=== PATIENT | male | born 1940 | race Caucasian/White ===

== ENCOUNTER → 2017-08-21 16:04 | Outpatient (CLI) | payer MEDICARE, OTHER, SELFPAY ==
[2017-08-21 17:38] LABS: ALB/GLOB Ratio 0.9 RATIO (0.9-2.4); AST(SGOT) 41 U/L (15-37); Alanine Aminotransfer ALT/SGPT 44 U/L (16-61); Alkaline Phosphatase 76 U/L (45-117); Anion Gap 9 (5-15); BUN 18 mg/dL (7-18); BUN/Creat Ratio 22.1 RATIO (10-20); Bilirubin, Direct 0.15 mg/dL (0.00-0.30); Calcium,Total 8.8 mg/dL (8.5-10.1); Chloride 103 mmol/L (98-107); Cholesterol 102 mg/dL (200); Creatinine, Serum 0.82 mg/dL (0.70-1.30); EST Glomerular Filtration Rate 98 mL/min (>60); Est Glom Filt Rate - Afr Amer 119 mL/min (>60); Globulin 4.4 g/dL (2.2-4.2); Glucose 130 mg/dL (74-106); High Density Lipoprotein 29 mg/dL; Potassium 4.5 mmol/L (3.5-5.1); Protein, Total 8.4 g/dL (6.4-8.2); Sodium Level 140 mmol/L (136-145); Triglycerides 95 mg/dL; Very Low Density Lipoprotein 19 mg/dL (5-40)
[2017-08-21 17:59] LABS: Creatinine, Urine (random) < 13.00 mg/dL (NO RANGE EST.); Microalbumin,Random Urine < 5.0 mg/L (NO RANGE EST.)
== END ==
PROVIDERS: Family Provider Family Medicine; PCP Family Medicine; Visit Provider Family Medicine
DX: E11.9 Type 2 diabetes mellitus without complications (principal); I10 Essential (primary) hypertension
CPT/HCPCS: 36415; 80053; 80061; 82043; 82248; 82570

== ENCOUNTER → 2017-08-24 06:12 | Outpatient (CLI) | payer MEDICARE, OTHER, SELFPAY ==
--- NOTE | 2017-08-24 06:14 | ECHOD_ITS ---
Reason For Study: Dyspnea/SOB Procedure This was a 2D Doppler, Color Flow transthoracic echocardiogram. Exam performed in department. Left Ventricle Normal LV size. Mild concentric left ventricular hypertrophy. Left ventricular systolic function is normal. The estimated ejection fraction is 60 %. Transmitral diastolic flow velocities suggest mild (stage 1) diastolic dysfunction (reversed pattern). No regional wall motion abnormalities noted. Right Ventricle Normal RV size. Normal systolic function. Atria Normal left atrium. Normal right atrium. Mitral Valve Normal mitral valve. Mild (1+) eccentric mitral valve insufficiency. Tricuspid Valve Normal tricuspid valve. Mild tricuspid valve insufficiency. Aortic Valve Trisinus/trileaflet aortic valve. Mild focal aortic valve calcification. Mild (1+) eccentric aortic valve insufficiency. Pulmonic Valve Normal pulmonic valve. Great Vessels Normal aortic root. The pulmonary artery is normal size. Normal inferior vena cava. Pericardium/Pleural No pericardial effusion. MMode/2D Measurements & Calculations LVIDd: 5.5 cm IVSd: 1.2 cm LVOT diam: 2.1 cm LVIDs: 4.0 cm LVPWd: 1.2 cm LVOT area: 3.5 cm2 RVDd: 3.3 cm FS: 27.8 % Ao root diam: 3.8 cm LAV(MOD-bp): 66.8 ml EDV(MOD-sp4): 108.2 ml LAV(MOD-bp) Indexed: 29.0 ml/m2 ESV(MOD-sp4): 37.5 ml LAV(MOD-sp2): 75.4 ml EF(MOD-sp4): 65.4 % LAV(MOD-sp4): 59.4 ml SV(MOD-sp4): 70.8 ml LA A4 area: 20.2 cm2 RA A4 area: 16.8 cm2 Doppler Measurements & Calculations MV E max chucho: 77.2 cm/sec Lat Peak E' Chucho: 7.2 cm/sec Med Peak E' Chucho: 5.1 cm/sec MV A max chucho: 101.0 cm/sec E/E' lat: 10.8 E/E' med: 15.1 MV E/A: 0.76 Ao V2 max: 187.4 cm/sec LV V1 max: 106.2 cm/sec SV(LVOT): 84.6 ml Ao max P.1 mmHg LV V1 max P.5 mmHg Ao V2 mean: 129.2 cm/sec LV V1 mean P.6 mmHg Ao mean P.3 mmHg LV V1 mean: 76.4 cm/sec Ao V2 VTI: 38.3 cm LV V1 VTI: 24.1 cm ESPERANZA(I,D): 2.2 cm2 ESPERANZA(V,D): 2.0 cm2 PA V2 max: 102.9 cm/sec PI end-d chucho: 111.9 cm/sec TR max chucho: 222.7 cm/sec TR max P.8 mmHg Interpretation Summary Normal LV size. Mild concentric left ventricular hypertrophy. Left ventricular systolic function is normal. The estimated ejection fraction is 60 %. Mild (1+) eccentric mitral valve insufficiency. Transmitral diastolic flow velocities suggest mild (stage 1) diastolic dysfunction (reversed pattern). Ordering Physician: Tammy Pathak Referring Physician: Viktor Interiano Performed By: Anita Pang RDCS, RVT
--- NOTE | 2017-08-24 09:07 | STRESSREP ---
Stress Test Report Pharmacologic myocardial perfusion stress test. 76-year-old male with a history of cardiomyopathy. Medications aspirin Lasix carvedilol potassium. Stress protocol: Resting EKG demonstrates sinus rhythm with a rate of 62 bpm right bundle branch block is noted. Resting blood pressure is 170/102 mmHg. 0.4 mg of regadenoson was infused per usual protocol followed by rapid intravenous saline flush injection. Continuous EKG monitoring was performed. Patient maintained sinus rhythm throughout the recording. The maximum heart rate attained was 78 bpm which was 53% maximum predicted heart rate the maximum workload was 1 metabolic equivalent. At rest there were no ST or T-wave changes noted to suggest abnormal flow reserve at peak infusion no ST or T-wave changes were noted suggest abnormal flow reserve. The resting blood pressure is 170/98 mmHg with a peak blood pressure 162/102 mmHg. Myocardial perfusion protocol. 14.6 mCi of technetium 99m sestamibi was injected at rest. 0.4 mg regadenoson was infused per usual protocol. Peak infusion 44.8 mCi of technetium 99m sestamibi was injected stress images were obtained stress and rest images were reconstructed and compared in the short axis vertical long and horizontal long axis. Gated images were also obtained pre- Perfusion SPECT analysis: Review of the images demonstrate normal uptake of tracer noted in all areas of the myocardium. The resting images similarly demonstrate normal uptake of tracer noted in all areas of the myocardium. No areas of reversibility are noted suggest ischemia and no previous infarct is noted. Gated SPECT analysis: The gated ejection fraction is estimated to be 55%. No wall motion abnormalities are present. Conclusion: Normal pharmacologic myocardial perfusion stress test. Preserved ejection fraction.
== END ==
PROVIDERS: Family Provider Family Medicine; PCP Family Medicine; Visit Provider Physician Assistant Medical
DX: R06.09 Other forms of dyspnea (principal); E78.5 Hyperlipidemia, unspecified; I42.9 Cardiomyopathy, unspecified; I11.0 Hypertensive heart disease with heart failure; I50.22 Chronic systolic (congestive) heart failure
CPT/HCPCS: 78452; 93017; 93306; A9500; A4216; J2785

== ENCOUNTER → 2018-03-31 14:54 | Outpatient (CLI) | payer MEDICARE, OTHER, SELFPAY ==
[2017-08-06 13:19] VITALS: BMI 44.4
[2018-03-31 18:05] LABS: AST(SGOT) 45 U/L (15-37); Alanine Aminotransfer ALT/SGPT 43 U/L (16-61); Albumin, Serum 3.9 g/dL (3.2-5.0); Alkaline Phosphatase 79 U/L (45-117); Anion Gap 8 (5-15); BUN 17 mg/dL (7-18); Bilirubin, Direct 0.17 mg/dL (0.00-0.30); Calcium,Total 8.9 mg/dL (8.5-10.1); Chloride 105 mmol/L (98-107); Cholesterol 114 mg/dL (200); Creatinine, Serum 0.74 mg/dL (0.70-1.30); EST Glomerular Filtration Rate 110 mL/min (>60); Est Glom Filt Rate - Afr Amer 133 mL/min (>60); Globulin 3.5 g/dL (2.2-4.2); Glucose 146 mg/dL (74-106); High Density Lipoprotein 35 mg/dL; Potassium 4.5 mmol/L (3.5-5.1); Protein, Total 7.4 g/dL (6.4-8.2); Sodium Level 143 mmol/L (136-145); Triglycerides 135 mg/dL; Very Low Density Lipoprotein 27 mg/dL (5-40)
[2018-03-31 18:40] LABS: Microalbumin,Random Urine 31.1 mg/L (NO RANGE EST.)
--- OUTSIDE RECORDS SUMMARY | 2018-06-02 17:33 | XMS RPT_ITS ---
:1940 Author Organization OHIP Care Team Providers Name Role Phone Viktor Interiano Attending Unavailable Viktor Interiano Primary Care Unavailable Ann Garcia Attending Unavailable Kary Esteban Attending Unavailable Tammy Pathak Attending Unavailable Viktor Interiano Referring Unavailable Viktor Interiano Primary Care Unavailable Viktor Interiano Attending Unavailable Viktor Interiano Primary Care Unavailable Tammy Pathak Attending Unavailable Tammy Pathak Referring Unavailable Viktor Interiano Primary Care Unavailable Manan Eckert Attending Unavailable PROBLEMS PROBLEMS DATE TYPE CONDITION / CODE ATTENDING STATUS SOURCE 03/31/2018 Unknown E11.9 - Type 2 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 [facility] without Hospital complications / Repository E11.9(ICD-10) 08/21/2017 Unknown I10 - Essential Viktor Interiano Active [place] (primary) [facility] hypertension / Hospital I10(ICD-10) Repository 08/06/2017 Unknown I50.22 - Chronic Lawson, Active Linda systolic [facility] (congestive) heart Hospital failure / Repository I50.22(ICD-10) 08/06/2017 Unknown E78.5 - Pathak, Active [facility] Hyperlipidemia, [facility] unspecified / Hospital E78.5(ICD-10) Repository 08/06/2017 Unknown I42.9 - Pathak, Active [place] Cardiomyopathy, [facility] unspecified / Hospital I42.9(ICD-10) Repository 08/06/2017 Unknown R06.09 - Other Pathak, Active Linda forms of dyspnea / [facility] R06.09(ICD-10) Hospital Repository PROCEDURES PROCEDURES No Procedure Records FoundRESULTS RESULTS BASIC METABOLIC Collected: 03/31/2018 Status: F Source: LINDA PROFILE (BMP) 2:58 PM [facility] REPOSITORY TYPE CODE TESTS RESULT OUT OF RANGE REFERENCE UNITS LAB L501.0100 74-106 mg/dL High GLU 146 Result Comment: Fasting Glucose result greater than or equal to 126 mg/dL suggests DIABETES MELLITUS per A.D.A. criteria. Please note revised GLUCOSE reference range effective 2017. LAB L501.1000 7-18 mg/dL Normal BUN 17 LAB L501.1100 0.70-1.30 mg/dL Normal CREAT,SERUM 0.74 Result Comment: The validity of the calculated GFR AND GFRAA in patients over 70 years has not been determined. Clinical correlation is essential. LAB L501.1110 >60 mL/min Normal EST GFR 110 Result Comment: Non- GFR Calc LAB L501.1115 >60 mL/min Normal EST GFR - AA 133 Result Comment: GFR Calc LAB L501.1300 10-20 RATIO High BUN/CRE 23.0 LAB L501.2200 8.5-10.1 mg/dL CA Normal 8.9 LAB L501.5300 136-145 mmol/L NA Normal 143 LAB L501.5600 3.5-5.1 mmol/L K Normal 4.5 LAB L501.5900 98-107 mmol/L CL Normal 105 LAB L501.6100 21.0-32.0 mmol/L Normal CO2 30.0 LAB L501.6200 5-15 Normal GAP 8 Performed By: #### L500.2500, L500.3400, L500.4100 #### [facility] [address], [place], [id number] LIVER PROFILE Collected: 03/31/2018 Status: F Source: BRANSON 2:58 PM [facility] REPOSITORY TYPE CODE TESTS RESULT OUT OF RANGE REFERENCE UNITS LAB L501.1500 6.4-8.2 g/dL Normal T PROT 7.4 LAB L501.1800 3.2-5.0 g/dL Normal ALB 3.9 LAB L501.1950 2.2-4.2 g/dL Normal GLOB 3.5 LAB L501.4100 15-37 U/L High AST 45 LAB L501.4305 45-117 U/L Normal ALK P 79 LAB L501.4405 16-61 U/L Normal ALT 43 LAB L501.4600 0.20-1.00 mg/dL Normal T BILI 0.50 LAB L501.4700 0.00-0.30 mg/dL Normal D BILI 0.17 Performed By: #### L500.2500, L500.3400, L500.4100 #### [facility] [address], [place], [id number] LIPID PROFILE Collected: 03/31/2018 Status: F Source: BRANSON 2:58 PM [facility] REPOSITORY TYPE CODE TESTS RESULT OUT OF RANGE REFERENCE UNITS LAB L501.4900 200 mg/dL Normal CHOL 114 Result Comment: <200 mg/dL Desirable 200-240 mg/dL Borderline >240 mg/dL High Risk LAB L501.5000 mg/dL Normal TRIG 135 Result Comment: The drugs N-Acetylcysteine and Metamizole may falsely depress this assay. Serum Triglycerides Reference Interval Normal <150 mg/dL Borderline high 150 - 199 mg/dL High 200 - 499 mg/dL Very High > or = 500 mg/dL LAB L501.6400 mg/dL Low HDL 35 Result Comment: The drugs N-Acetylcysteine and Metamizole may falsely depress this assay. Reference Range HDL <40 mg/dL Low HDL Cholesterol HDL >or= 60 mg/dL High HDL Cholesterol LAB L501.6500 0-130 mg/dL Normal LDL 52 LAB L501.6600 5-40 mg/dL Normal VLDL 27 Performed By: #### L500.2500, L500.3400, L500.4100 #### [facility] [address] [place], [address] MICROALB:CREAT Collected: 03/31/2018 Status: F Source: BRANSON RATIO,RANDOM UR 2:58 PM [facility] REPOSITORY TYPE CODE TESTS RESULT OUT OF RANGE REFERENCE UNITS LAB L501.1200 NO RANGE EST. mg/dL Normal UR CREAT 259.00 LAB L502.0500 NO RANGE EST. mg/L Normal 31.1 MICROALBUMIN ,UR LAB L502.0600 <30 mg/g CRE mg/g CRE Normal 12.0 MALB:CREAT Performed By: #### L502.0250 #### [facility] [address] [place], [address] ECHOCARDIOGRAM COMPLETE Observed: 08/24/2017 Status: F Source: BRANSON 3:33 PM [facility] REPOSITORY [facility] Cardiovascular Services [address] [place] [address] Echo Complete 08/24/17 0852 MR#: [id number] Acct: [id number] Name: LAWRENCE GILL Rep #: [id number] : 1940 76 From: Manan Eckert MD Attending Dr: Tammy Pathak [facility]: Tammy Pathak Date: 08/24/17 Location: [facility] Sex: M C Admitted: Reason For Study: Dyspnea/SOB Procedure This was a 2D Doppler, Color Flow transthoracic echocardiogram. Exam performed in department. Left Ventricle Normal LV size. Mild concentric left ventricular hypertrophy. Left ventricular systolic function is normal. The estimated ejection fraction is 60 %. Transmitral diastolic flow velocities suggest mild (stage 1) diastolic dysfunction (reversed pattern). No regional wall motion abnormalities noted. Right Ventricle Normal RV size. Normal systolic function. Atria Normal left atrium. Normal right atrium. Mitral Valve Normal mitral valve. Mild (1+) eccentric mitral valve insufficiency. Tricuspid Valve Normal tricuspid valve. Mild tricuspid valve insufficiency. Aortic Valve Trisinus/trileaflet aortic valve. Mild focal aortic valve calcification. Mild (1+) eccentric aortic valve insufficiency. Pulmonic Valve Normal pulmonic valve. Great Vessels Normal aortic root. The pulmonary artery is normal size. Normal inferior vena cava. Pericardium/Pleural No pericardial effusion. MMode/2D Measurements AND Calculations LVIDd: 5.5 cm IVSd: 1.2 cm LVOT diam: 2.1 cm LVIDs: 4.0 cm LVPWd: 1.2 cm LVOT area: 3.5 cm2 RVDd: 3.3 cm FS: 27.8 % Ao root diam: 3.8 cm LAV(MOD-bp): 66.8 ml EDV(MOD-sp4): 108.2 ml LAV(MOD-bp) Indexed: 29.0 ml/m2 ESV(MOD-sp4): 37.5 ml LAV(MOD-sp2): 75.4 ml EF(MOD-sp4): 65.4 % LAV(MOD-sp4): 59.4 ml SV(MOD-sp4): 70.8 ml LA A4 area: 20.2 cm2 RA A4 area: 16.8 cm2 Doppler Measurements AND Calculations MV E max chucho: 77.2 cm/sec Lat Peak E' Chucho: 7.2 cm/sec Med Peak E' Chucho: 5.1 cm/sec MV A max chucho: 101.0 cm/sec E/E' lat: 10.8 E/E' med: 15.1 MV E/A: 0.76 Ao V2 max: 187.4 cm/sec LV V1 max: 106.2 cm/sec SV(LVOT): 84.6 ml Ao max P.1 mmHg LV V1 max P.5 mmHg Ao V2 mean: 129.2 cm/sec LV V1 mean P.6 mmHg Ao mean P.3 mmHg LV V1 mean: 76.4 cm/sec Ao V2 VTI: 38.3 cm LV V1 VTI: 24.1 cm ESPERANZA(I,D): 2.2 cm2 ESPERANZA(V,D): 2.0 cm2 PA V2 max: 102.9 cm/sec PI end-d chucho: 111.9 cm/sec TR max chucho: 222.7 cm/sec TR max P.8 mmHg Interpretation Summary Normal LV size. Mild concentric left ventricular hypertrophy. Left ventricular systolic function is normal. The estimated ejection fraction is 60 %. Mild (1+) eccentric mitral valve insufficiency. Transmitral diastolic flow velocities suggest mild (stage 1) diastolic dysfunction (reversed pattern). Ordering Physician: Tammy Pathak Referring Physician: Viktor Interiano Performed By: Anita Pang, RDCS, RVT 08/24/17 1146 Date Manan Eckert MD CC: Tammy Pathak; Viktor Interiano MD Date Dictated: 08/24/17 0852 Date Transcribed: 08/24/17 114 Health Director: Signed STRESS REPORT Observed: 08/24/2017 Status: F Source: BRANSON 9:10 AM [facility] REPOSITORY [facility] Cardiovascular Services [facility] [place] [address] MR#: [id number] Acct: [id number] Name: LAWRENCE GILL Rep #: [id number] : 1940 76 From: Manan Eckert MD Primary Care: Viktor Interiano MD Status: REG CLI Ordering Dr: Sex: Claribel C Stress Test Report Pharmacologic myocardial perfusion stress test. 76-year-old male with a history of cardiomyopathy. Medications aspirin Lasix carvedilol potassium. Stress protocol: Resting EKG demonstrates sinus rhythm with a rate of 62 bpm right bundle branch block is noted. Resting blood pressure is 170/102 mmHg. 0.4 mg of regadenoson was infused per usual protocol followed by rapid intravenous saline flush injection. Continuous EKG monitoring was performed. Patient maintained sinus rhythm throughout the recording. The maximum heart rate attained was 78 bpm which was 53% maximum predicted heart rate the maximum workload was 1 metabolic equivalent. At rest there were no ST or T-wave changes noted to suggest abnormal flow reserve at peak infusion no ST or T-wave changes were noted suggest abnormal flow reserve. The resting blood pressure is 170/98 mmHg with a peak blood pressure 162/102 mmHg. Myocardial perfusion protocol. 14.6 mCi of technetium 99m sestamibi was injected at rest. 0.4 mg regadenoson was infused per usual protocol. Peak infusion 44.8 mCi of technetium 99m sestamibi was injected stress images were obtained stress and rest images were reconstructed and compared in the short axis vertical long and horizontal long axis. Gated images were also obtained pre- Perfusion SPECT analysis: Review of the images demonstrate normal uptake of tracer noted in all areas of the myocardium. The resting images similarly demonstrate normal uptake of tracer noted in all areas of the myocardium. No areas of reversibility are noted suggest ischemia and no previous infarct is noted. Gated SPECT analysis: The gated ejection fraction is estimated to be 55%. No wall motion abnormalities are present. Conclusion: Normal pharmacologic myocardial perfusion stress test. Preserved ejection fraction. 08/24/17909 <Electronically signed by Manan Eckert MD> Date Manan Eckert MD CC: Tammy Pathak; Viktor Interiano MD Date Dictated: 08/24/17906 Date Transcribed: 08/24/17906 Health Director: [place] Signed COMPREHENSIVE METABOLIC Collected: 08/21/2017 Status: F Source: LINDA FLOR 4:06 PM [facility] REPOSITORY TYPE CODE TESTS RESULT OUT OF RANGE REFERENCE UNITS LAB L501.0100 74-106 mg/dL High GLU 130 Result Comment: Fasting Glucose result greater than or equal to 126 mg/dL suggests DIABETES MELLITUS per A.D.A. criteria. Please note revised GLUCOSE reference range effective 2017. LAB L501.1000 7-18 mg/dL Normal BUN 18 LAB L501.1100 0.70-1.30 mg/dL Normal CREAT,SERUM 0.82 Result Comment: The validity of the calculated GFR AND GFRAA in patients over 70 years has not been determined. Clinical correlation is essential. LAB L501.1110 >60 mL/min Normal EST GFR 98 Result Comment: Non- GFR Calc LAB L501.1115 >60 mL/min Normal EST GFR - AA 119 Result Comment: GFR Calc LAB L501.1300 10-20 RATIO High BUN/CRE 22.1 LAB L501.1500 6.4-8.2 g/dL High T PROT 8.4 LAB L501.1800 3.2-5.0 g/dL Normal ALB 4.0 LAB L501.1950 2.2-4.2 g/dL High GLOB 4.4 LAB L501.2000 0.9-2.4 RATIO Normal A/G 0.9 LAB L501.2200 8.5-10.1 mg/dL CA Normal 8.8 LAB L501.4100 15-37 U/L High AST 41 LAB L501.4305 45-117 U/L Normal ALK P 76 LAB L501.4405 16-61 U/L Normal ALT 44 LAB L501.4600 0.20-1.00 mg/dL T Normal BILI 0.60 LAB L501.5300 136-145 mmol/L NA Normal 140 LAB L501.5600 3.5-5.1 mmol/L K Normal 4.5 LAB L501.5900 98-107 mmol/L CL Normal 103 LAB L501.6100 21.0-32.0 mmol/L Normal CO2 28.0 LAB L501.6200 5-15 Normal GAP 9 Performed By: #### L500.4050, L500.4100, L501.4700 #### [facility] [address] [facility]. [place], [place], [id number] LIPID PROFILE Collected: 08/21/2017 Status: F Source: BRANSON 4:06 PM [facility] REPOSITORY TYPE CODE TESTS RESULT OUT OF RANGE REFERENCE UNITS LAB L501.4900 200 mg/dL Normal CHOL 102 Result Comment: <200 mg/dL Desirable 200-240 mg/dL Borderline >240 mg/dL High Risk LAB L501.5000 mg/dL Normal TRIG 95 Result Comment: The drugs N-Acetylcysteine and Metamizole may falsely depress this assay. Serum Triglycerides Reference Interval Normal <150 mg/dL Borderline high 150 - 199 mg/dL High 200 - 499 mg/dL Very High > or = 500 mg/dL LAB L501.6400 mg/dL Low HDL 29 Result Comment: The drugs N-Acetylcysteine and Metamizole may falsely depress this assay. Reference Range HDL <40 mg/dL Low HDL Cholesterol HDL >or= 60 mg/dL High HDL Cholesterol LAB L501.6500 0-130 mg/dL Normal LDL 54 LAB L501.6600 5-40 mg/dL Normal VLDL 19 Performed By: #### L500.4050, L500.4100, L501.4700 #### [facility] [address] [place], [address] BILIRUBIN, DIRECT Collected: 08/21/2017 Status: F Source: LINDA 4:06 PM [facility] REPOSITORY TYPE CODE TESTS RESULT OUT OF RANGE REFERENCE UNITS LAB L501.4700 0.00-0.30 mg/dL Normal D BILI 0.15 Performed By: #### L500.4050, L500.4100, L501.4700 #### [facility] [address] [place], [address] MICROALB:CREAT Collected: 08/21/2017 Status: F Source: LINDA RATIO,RANDOM UR 4:06 PM [facility] REPOSITORY TYPE CODE TESTS RESULT OUT OF RANGE REFERENCE UNITS LAB L501.1200 NO RANGE EST. mg/dL < Normal UR 13.00 CREAT LAB L502.0500 NO RANGE EST. mg/L < 5.0 Normal MICROALBUMI N,UR LAB L502.0600 <30 mg/g CRE mg/g CRE Test Normal not performed MALB:CREAT Performed By: #### L502.0250 #### [facility] [address] [place], [address] CARDIOLOGY VISIT Observed: 08/19/2017 Status: F Source: LINDA REPORT 8:22 AM [facility] REPOSITORY [facility] [address] [place] [address] OFFICE VISIT Date of Service: 08/06/17 MR#: [id number] Acct: [id number] Name: LAWRENCE GILL Rep #: [id number] : 1940 Provider: Tammy Pathak Age/Sex: 76/M [place] [facility] Status: Signed HPI HPI Details: LAWRENCE GILL, is a 76 M who presents to the office today for a cardiovascular follow-up. He has a history of nonischemic cardiomyopathy, hypertension and diabetes. is concerned that that is more fatigued, has less energy and is more SOB with exertion. sts that is SOB walking to the kitchen. Pt feels that this is related to his 14 lb weight gain over the last year. Pt does not have any chest pain/heaviness/tightness. Pt does not have any palpitations. Pt does occasionally have positional dizziness. Pt has not had any near syncope/syncope. Pt does not have any edema. 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 Required: No Accompanied by: Is patient in pain?: No Allergies lisinopril Allergy (Verified 08/06/17 13:22) Angioedema Medications Aspirin 81 mg PO DAILY 01/01/17 [History Confirmed 08/06/17] Furosemide [Lasix] 40 mg PO DAILY 01/01/17 [History Confirmed 08/06/17] Metformin HCl 500 mg PO DAILY 01/01/17 [History Confirmed 08/06/17] atorvastatin 20 mg tablet 20 mg PO QDAY 08/04/17 [History Confirmed 08/06/17] carvedilol 25 mg tablet 25 mg PO BID 08/04/17 [History Confirmed 08/06/17] potassium chloride ER 20 mEq tablet,extended release(part/cryst) PO 90 Days #90 08/06/17 [History Confirmed 08/06/17] Ejection fraction %: 65 to 70 PFSH Medical History Essential (primary) hypertension (Chronic) HLD (hyperlipidemia) (Chronic) Cardiomyopathy (Chronic) Dyspnea (Acute) Shortness of breath (Acute) Surgical History H/O vasectomy (Resolved) History of tonsillectomy (Resolved) History of knee replacement (Resolved) Family History Father Hypertension Mother Hypertension Social History Smoking Status: Never smoker alcohol intake: never caffeine: Yes Type: coffee Number of servings: 3 what type of physical activity do you participate in: none ROS Const Const: Positive for fatigue; negative for weakness, fever(s) or headache(s) Eyes Eyes: Negative for blind spots, loss of peripheral vision or transient loss of vision ENT ENT: Negative for headache(s), dizziness, tinnitus or Nosebleed/epistaxis Cardio Chest Pain: No Palpitations: No Edema: None Muscle aches with walking: None Resp Respiratory: Positive for SOB with activity; negative for SOB at rest, SOB orthopnea\SOB lying down or Cough GI GI: Negative nausea, vomiting, heartburn or vomiting blood/hematemesis : Negative for hematuria Musc Musc: Negative for muscle aches/ myalgia Neuro Neuro: Negative for weakness, headache(s), dizziness, near syncope, syncope, lightheadedness or orthostatic symptoms Kenneth Hematologic/Lymphatic: Negative for easy bleeding Endo Endo: Positive for fatigue Cardiology Exam Const Appearance: cooperative, no acute distress and well developed Orientation: alert, awake and oriented x3 Head Head: normocephalic and atraumatic Mouth: moist mucous membranes Eyes General: appearance normal, both eyes and all related structures Conjunctivae: conjunctivae normal Pupils: PERRL EOM: EOM intact bilaterally Neck Neck: normal visual inspection, no lymphadenopathy and no JVD Carotids: Negative bruit Neck Mass: Negative Neck mass Chest Chest inspection: normal inspection of the chest and symmetric chest movement Auscultation: Bilateral: Clear to Auscultation Cardio Palpation: normal PMI Rate: regular rate Rhythm: regular rhythm Heart sounds: S1 normal and S2 normal; negative rub, gallop or murmur GI GI: normal to inspection, soft, no hepatosplenomegaly and bowel sounds present; negative tender Neuro General: alert, awake, oriented x3, CN's II-XI intact bilaterally and moves all extremities Extremities Pulses: Normal: Right Posterior Tibial Pulse, Left Posterior Tibial Pulse, Right Radial Pulse, Left Radial Pulse Lower Extremity Edema: None: Bilateral Psych Psychological: normal affect Supplemental Info Echocardiogram done in 2013 demonstrated an ejection fraction of 65% with structurally normal valves. Assessment AND Plan 1. Dilated cardiomyopathy I42.0 Plan - NAVEEN Buckley Patient does have worsening shortness of breath. Would like to obtain an echocardiogram to evaluate LV function. Patient remain on his diuretic and his Coreg. 2. Essential hypertension I10 Plan NAVEEN Rahman Blood pressure is well controlled on current medications, we do not recommend any changes at this time. Orders Orders: 3. Pure hypercholesterolemia E78.00; E78.0 NAVEEN Sandoval Lipids are adequately controlled. Will not make any adjustments. 4. Dyspnea on exertion R06.09 NAVEEN Sandoval With patient's worsening shortness of breath with exertion would like to obtain an echocardiogram to reevaluate LV function. Would also like to obtain a stress test to evaluate for underlying ischemia. 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) Coding Level of Care Code Off vis,est,level 4 Diagnoses Dilated cardiomyopathy I42.0 Cardiomyopathy type: dilated Essential hypertension I10 Pure hypercholesterolemia E78.00; E78.0 Hyperlipidemia type: pure hypercholesterolemia Dyspnea on exertion R06.09 Dyspnea type: dyspnea on exertion Coding Level of Care Code Off vis,est,level 4 Diagnoses Dilated cardiomyopathy I42.0 Cardiomyopathy type: dilated Essential hypertension I10 Pure hypercholesterolemia E78.00; E78.0 Hyperlipidemia type: pure hypercholesterolemia Dyspnea on exertion R06.09 Dyspnea type: dyspnea on exertion 06 1326 <Electronically signed by Tammy Pathak PA> Date Tammy HODGE 08/19/17 0822<Electronically signed by Manan Eckert MD> Cosigner Signature: Date (if applicable) Manan Eckert MD CC: Viktor Interiano MD ALLERGIES ALLERGIES DATE TYPE / CODE NAME / CODE REACTION SEVERITY SOURCE 08/06/2017 Drug lisinopril/F Angioedema Unknown [facility] Allergy/4160 [id number]([facility] [address](SNOMED NORM) Repository CT) ENCOUNTERS ENCOUNTERS ADMIT/DISCHARGE ACCOUNT ADMITTING ENCOUNTER LOCATION SOURCE NUMBER CLASS 03/31/2018 [id number] Ambulatory [facility] ing:[facility] Repository 08/24/2017 [id number] Ambulatory [place] Linda 4 [facility] ing:[facility] Repository 08/24/2017 [id number] Ambulatory BMSBuilding:W Linda 2 [facility] Repository 08/21/2017 [id number] Ambulatory [facility] 4 [facility] ing:[facility] Repository 08/06/2017/ [id number] Ambulatory BMSBuilding:B [facility] 8 0 [facility] Repository 08/04/2017 [id number] Ambulatory BMS [address] Repository 07/17/2017 [id number] Ambulatory BMSBuilding:B [facility] 8 [facility] Repository PAYERS PAYERS ENCOUNTER GUARANTOR PAYER SUBSCRIBER SOURCE 03/31/2018 LAWRENCE [place] Primary LAWRENCE [id number] [address] Insurance:MEDICARE [place]: [facility] [place] [facility] [id number] Hospital [address]Yow: (330) Number: Repository [phone] () [id number] Date:2018-03-31 03/31/2018 Secondary LAWRENCE San[place] Linda Insurance:MED MUT WARDENDOB: [facility] [id number] Hospital Number: Repository [id number] Date:[id number] [address]UN: 03/31/2018 Tertiary NOT GIVENUNK Linda Insurance:SELF PAY [facility] Number: Effective Repository Date:2018-03-31 08/24/2017 LAWRENCE Sanford Primary LAWRENCE Mckeon [id number] FAMILIA Insurance:MEDICARE WARDENDOB: [facility] [place] [facility] [id number] Hospital [address]Ixt: Number: Repository [phone] [id number] () Date:2017-08-07 08/24/2017 Secondary LAWRENCE Mckeon Insurance:MUTUAL OF WARDENDOB: [facility] Number: [id number] Hospital [id number] Repository Date:[id number] [place], [place] [address]SV: 08/24/2017 Tertiary NOT GIVENUNK Linda Insurance:SELF PAY [facility] Number: Effective Repository Date:2017-08-07 08/24/2017 LAWRENCE Sanford Primary LAWRENCE Mckeon [id number] FAM[place] Insurance:MEDICARE WARDENDOB: [facility] [place] [facility] [id number] Hospital [address]Mig: (330) Number: Repository [phone] () [id number] Date:2017-08-07 08/24/2017 Secondary LAWRENCE [facility]ford [facility] Insurance:MUTUAL OF WARDENDOB: [facility] Number: [id number] Hospital [id number] Repository Date:[id number] [place], [place] [address]NN: 08/24/2017 Tertiary NOT GIVENUNK [facility] Insurance:SELF PAY [facility] Number: Effective Repository Date:2017-08-24 08/21/2017 LAWRENCE Sanford Primary LAWRENCE Mckeon [id number] FAM[place] Insurance:MEDICARE [place]: [place] olic [id number] Hospital [address]Lau: Number: Repository [phone] [id number] () Date:2017-08-21 08/21/2017 Secondary LAWRENCE Sanford Linda Insurance:MUTUAL OF WARDENDOB: [facility] Number: [id number] Hospital [id number] Repository Date:[id number] [place], [place] [address]YT: 08/21/2017 Tertiary NOT GIVENUNK Linda Insurance:SELF PAY [facility] Number: Effective Repository Date:2017-08-21 08/06/2017 LAWRENCE Sanford Primary LAWRENCE Mckeon [id number] FAM[place] Insurance:MEDICARE [place]: [place] [facility] [id number] Hospital [address]Qmr: Number: Repository [phone] [id number] () Date:2017-02-18 08/06/2017 Secondary LAWRENCE Sanford [facility] Insurance:MUTUAL OF WARDENDOB: [facility] Number: [id number] Hospital [id number] Repository Date:[id number] [place], [place] [address]OL: 08/06/2017 Tertiary NOT GIVENUNK Linda Insurance:SELF PAY [facility] Number: Effective Repository Date:2017-02-18 08/04/2017 Lawrence Sanford Primary Lawrence Mckeon [id number] Familia Insurance:MEDICARE [place] [facility] [id number] [id number]: [phone]) Number: Repository [phone] () [id number] Date:2017-08-04 08/04/2017 Secondary Lawrence Sanford [place] Insurance:MUTUAL OF WardenDOB: [facility] Number: [id number] Hospital [id number] Repository Date:[id number] [place], [place] [address]WZ: 08/04/2017 Tertiary NOT GIVENUNK [place] Insurance:SELF PAY [facility] Number: Effective Repository Date:2017-08-04 07/17/2017 Lawrence M Primary Lawrence M Linda [id number] Familia Insurance:MEDICARE WardenDOB: [facility] PART A [facility] [id number] Hospital [id number]: [phone]) Number: Repository [phone] () [id number] Date:2017-07-17 07/17/2017 Secondary Lawrence M [place] Insurance:MUTUAL OF WardenDOB: [facility] Number: [id number] Hospital [id number] Repository Date:[id number] [place], [place] [address]JI: 07/17/2017 Tertiary NOT GIVENUNK [place] Insurance:SELF PAY [facility] Number: Effective Repository Date:2017-07-17
== END ==
PROVIDERS: Family Provider Family Medicine; PCP Family Medicine; Visit Provider Family Medicine
DX: E11.9 Type 2 diabetes mellitus without complications (principal)
CPT/HCPCS: 36415; 80048; 80061; 80076; 82043; 82570

== ENCOUNTER → 2018-06-30 | Outpatient (CLI) | payer MEDICARE, OTHER, SELFPAY ==
[2017-08-06 13:19] VITALS: BMI 44.4
[2018-06-30 17:59] LABS: Hemoglobin A1c 8.1 % (4.2-6.3)
[2018-06-30 18:15] LABS: Anion Gap 9 (5-15); BUN 15 mg/dL (7-18); BUN/Creat Ratio 18.5 RATIO (10-20); Calcium,Total 9.1 mg/dL (8.5-10.1); Chloride 102 mmol/L (98-107); Cholesterol 125 mg/dL (200); Creatinine, Serum 0.81 mg/dL (0.70-1.30); EST Glomerular Filtration Rate 98 mL/min (>60); Est Glom Filt Rate - Afr Amer 119 mL/min (>60); Glucose 138 mg/dL (74-106); High Density Lipoprotein 33 mg/dL; PSA,Total - Annual Screen 0.97 ng/mL (0.00-4.00); Potassium 4.5 mmol/L (3.5-5.1); Sodium Level 142 mmol/L (136-145); Triglycerides 140 mg/dL; Very Low Density Lipoprotein 28 mg/dL (5-40)
[2018-06-30 18:21] LABS: Vitamin D,25 Hydroxy 17.9 ng/mL (29.95-100.01)
== END | disposition home or self-care (01) ==
LOC: MFPLAB 15:05
PROVIDERS: Family Provider Family Medicine; PCP Family Medicine; Referring Provider Family Medicine; Visit Provider Family Medicine
DX: Z00.00 Encounter for general adult medical examination without abnormal findings (principal); E55.9 Vitamin D deficiency, unspecified; E11.9 Type 2 diabetes mellitus without complications; Z12.5 Encounter for screening for malignant neoplasm of prostate
CPT/HCPCS: 36415; 80048; 80061; 82306; 83036; 84153; G0103

== ENCOUNTER 2018-11-26 18:53 | Emergency (ER) | payer MEDICARE, OTHER, SELFPAY ==
[2018-08-24 13:02] VITALS: BMI 43.5
[2018-11-26 18:54] VITALS: BP 147/70; PULSE 74; RESP 18; TEMP 36.6; O2SAT 92; BMI 44.4
--- NOTE | 2018-11-26 19:25 | RAD_ITS ---
STUDY: X-RAY - UNILATERAL RIBS ( RIGHT ) WITH CHEST REASON FOR EXAM: Male, 78 years old. Fall, right rib pain. TECHNIQUE - RIBS: 4 view(s) of the ribs. TECHNIQUE - CHEST: Single frontal view of the chest. COMPARISON: None. FINDINGS - RIBS: There are mild to moderately displaced fractures of the lateral left eighth and ninth ribs, as well as nondisplaced fracture of the lateral right 10th rib. FINDINGS - CHEST: Mild elevation of the right diaphragm and/or prominent epicardial fat pad at the right cardiophrenic angle. The lungs are otherwise clear and expanded. There is no demonstrated pleural abnormality. Normal size heart. Normal mediastinum and maury. Normal visualized pulmonary arteries. There is mild atherosclerotic calcification of the aortic arch. There are degenerative changes of the lower thoracic and visualized lumbar spine. Normal visualized left ribs, clavicles, and shoulders. There is no demonstrated abnormality of the visualized soft tissue structures of the upper abdomen. RAD/Ribs Uni Min 3V w/PA Chest IMPRESSION: RIBS: Fractures of the lateral right 8-10 ribs. CHEST: No acute cardiopulmonary disease. No right pneumothorax. Electronically Signed: Wilman Christianson MD at 19:47 EDT , Service support ,
--- NOTE | 2018-11-26 20:07 | ED.DCSUM_ITS ---
History of Present Illness Chief Complaint: Fall Narrative: Patient presenting for evaluation secondary to a fall with rib injury. Patient reports that he was fixing his deck, and he has an area with open joists that he fell directly onto the joist striking his right chest. Patient states that he now has a continuous sharp pain in that area worse with movement and deep breathing. Patient denies any shortness of breath. Denies any hemoptysis. Denies any hematuria associated with this. He is not anticoagulated. He denies any other injuries at this time. Past Medical History - Allergies and Home Meds Allergies/Adverse Reactions: Allergies lisinopril Allergy (Verified 11/26/18 18:57) Angioedema Primary Care Physician: Viktor Interiano MD [Primary Care Provider] - Past Medical History: - - CHF hypertension hyperlipidemia Smoking Status: Never smoker Review of Systems All systems negative except as indicated Cardiovascular: Reports: Chest pain Physical Exam Vital Signs/Narrative: Vital Signs Temp Pulse Resp BP Pulse Ox 11/26/18 18:54 97.9 F 74 18 147/70 H 92 Inital Vital Signs reviewed: Yes General: Well nourished, Well developed, - - Airway patent breath sounds equal bilateral central peripheral pulses 2+ and symmetric GCS 15 out of 15 Head: Normocephalic, Atraumatic Eyes: Perrl, EOMI Neck: Nontender, Full ROM Cardiovascular: Regular rate, Regular rhythm, No murmurs Respiratory: No distress, - - Right-sided rib tenderness over the lateral and anterior ribs at approximately the T8 area without any evidence of underlying crepitus or flail chest Abdomen: Soft, Nontender, Nondistended, Normal bowel sounds Back: Nontender Skin: Normal color, No rash Neurological: Alert, Oriented x3, Cranial nerves II-XII grossly intact, Normal Strength, Normal Sensation Psychological: Normal affect Diagnostic/Tx/Re-eval Chest X-Ray - ED: - - Right-sided rib series by my personal review as well as r adiology demonstrates evidence of rib fractures of T8-10 without evidence of associated pneumothorax - Medical Decision Making Patient presented secondary to a mechanical fall. Primary and secondary surveys showed evidence of right-sided rib pain no other injuries. Rib x-rays were found to show evidence of rib fractures. Patient had a pulse ox around 9394%, but is sitting very comfortably and is not dyspneic. He is not on any sort of anticoagulants and there is no evidence of underlying pulmonary contusion. I did discussion with patient about inpatient versus outpatient treatment for his rib fractures, he does wish to go home which I believe at this point is appropriate although I gave the patient strict return instructions which he voiced understanding of his and his own words. Patient will be discharged with an incentive spirometer lidocaine patches as well as a course of [place]. Disposition: Home ED Disposition - Plan for ED Patient: Disposition: Home or Assisted Living Diagnosis: Right rib fracture Instructions: Rib Fracture (Broken Rib) Prescriptions: Lidocaine [Lidoderm] 1 each TP DAILY #10 adh..patch Hydrocodone Bitart/Apap 5-325 [[place] 5MG-325MG] 1 tablet PO Q6H PRN PRN 3 Days #12 tablet PRN Reason: Pain Referrals: Viktor Interiano MD [Primary Care Provider] - 3-5 Days
[2018-11-26] MEDS: Lidocaine 5% Patch 1 PATCH TOPICAL (20:11)
== END 2018-11-26 20:21 | disposition home or self-care (01) ==
PROVIDERS: Emergency Provider Emergency Medicine; Family Provider Family Medicine; PCP Family Medicine
DX: S22.41XA Multiple fractures of ribs, right side, initial encounter for closed fracture (principal); W19.XXXA Unspecified fall, initial encounter; Y93.9 Activity, unspecified; Y92.9 Unspecified place or not applicable; I11.0 Hypertensive heart disease with heart failure; I50.9 Heart failure, unspecified; E78.5 Hyperlipidemia, unspecified; Z79.82 Long term (current) use of aspirin; Z79.899 Other long term (current) drug therapy
CPT/HCPCS: 71101; 99282

== ENCOUNTER → 2019-01-27 15:54 | Outpatient (CLI) | payer MEDICARE, OTHER, SELFPAY ==
[2019-01-27 17:46] LABS: Anion Gap 6 (5-15); BUN 14 mg/dL (7-18); BUN/Creat Ratio 22.2 RATIO (10-20); Calcium,Total 8.9 mg/dL (8.5-10.1); Chloride 105 mmol/L (98-107); Cholesterol 117 mg/dL (200); Creatinine, Serum 0.63 mg/dL (0.70-1.30); EST Glomerular Filtration Rate 131 mL/min (>60); Est Glom Filt Rate - Afr Amer 159 mL/min (>60); Glucose 133 mg/dL (74-106); High Density Lipoprotein 34 mg/dL; Potassium 4.3 mmol/L (3.5-5.1); Sodium Level 139 mmol/L (136-145); Triglycerides 118 mg/dL; Very Low Density Lipoprotein 24 mg/dL (5-40)
== END ==
PROVIDERS: Family Provider Family Medicine; PCP Family Medicine; Referring Provider Family Medicine; Visit Provider Family Medicine
DX: E11.9 Type 2 diabetes mellitus without complications (principal)
CPT/HCPCS: 36415; 80048; 80061

== ENCOUNTER → 2019-09-19 11:26 | Outpatient (CLI) | payer MEDICARE, OTHER, SELFPAY ==
[2019-02-23 10:08] VITALS: BMI 45.5
[2019-09-19 15:24] LABS: Anion Gap 5 (5-15); BUN 19 mg/dL (7-18); BUN/Creat Ratio 28.1 RATIO (10-20); Calcium,Total 8.8 mg/dL (8.5-10.1); Chloride 106 mmol/L (98-107); Creatinine, Serum 0.68 mg/dL (0.70-1.30); EST Glomerular Filtration Rate 121 mL/min (>60); Est Glom Filt Rate - Afr Amer 146 mL/min (>60); Glucose 160 mg/dL (74-106); Potassium 4.4 mmol/L (3.5-5.1); Sodium Level 139 mmol/L (136-145)
== END ==
PROVIDERS: PCP Family Medicine; Referring Provider Family Medicine; Visit Provider Family Medicine
DX: I10 Essential (primary) hypertension (principal)
CPT/HCPCS: 36415; 80048

== ENCOUNTER → 2019-12-19 11:19 | Outpatient (CLI) | payer MEDICARE, OTHER, SELFPAY ==
[2019-11-22 12:39] VITALS: BMI 44.5
[2019-12-19 13:36] LABS: ALB/GLOB Ratio 0.8 RATIO (0.9-2.4); AST(SGOT) 41 U/L (15-37); Alanine Aminotransfer ALT/SGPT 37 U/L (16-61); Albumin, Serum 3.7 g/dL (3.2-5.0); Alkaline Phosphatase 79 U/L (45-117); Anion Gap 4 (5-15); BUN 17 mg/dL (7-18); BUN/Creat Ratio 24.2 RATIO (10-20); Calcium,Total 8.9 mg/dL (8.5-10.1); Chloride 105 mmol/L (98-107); Cholesterol 122 mg/dL (200); EST Glomerular Filtration Rate 116 mL/min (>60); Est Glom Filt Rate - Afr Amer 140 mL/min (>60); Globulin 4.4 g/dL (2.2-4.2); Glucose 154 mg/dL (74-106); High Density Lipoprotein 34 mg/dL; Potassium 4.2 mmol/L (3.5-5.1); Protein, Total 8.1 g/dL (6.4-8.2); Sodium Level 138 mmol/L (136-145); Triglycerides 108 mg/dL; Very Low Density Lipoprotein 22 mg/dL (5-40)
[2019-12-19 13:46] LABS: Microalbumin,Random Urine 31.3 mg/L (NO RANGE EST.); Microalbumin:Creatinine Ratio 30.4 mg/g CRE (<30 mg/g CRE)
== END ==
PROVIDERS: PCP Family Medicine; Visit Provider Family Medicine
DX: E11.9 Type 2 diabetes mellitus without complications (principal)
CPT/HCPCS: 36415; 80053; 80061; 82043; 82570

== ENCOUNTER → 2020-06-18 13:52 | Outpatient (CLI) | payer MEDICARE, OTHER, SELFPAY ==
[2019-11-22 12:39] VITALS: BMI 44.5
[2020-06-18 15:49] LABS: Anion Gap 5 (5-15); BUN 12 mg/dL (7-18); BUN/Creat Ratio 16.2 RATIO (10-20); Calcium,Total 9.3 mg/dL (8.5-10.1); Chloride 101 mmol/L (98-107); Cholesterol 133 mg/dL (200); Creatinine, Serum 0.74 mg/dL (0.70-1.30); EST Glomerular Filtration Rate 109 mL/min (>60); Est Glom Filt Rate - Afr Amer 132 mL/min (>60); Glucose 143 mg/dL (74-106); High Density Lipoprotein 35 mg/dL; Potassium 4.3 mmol/L (3.5-5.1); Sodium Level 136 mmol/L (136-145); Triglycerides 118 mg/dL; Very Low Density Lipoprotein 24 mg/dL (5-40)
[2020-06-18 15:51] LABS: Microalbumin,Random Urine 16.3 mg/L (NO RANGE EST.); Microalbumin:Creatinine Ratio 20.4 mg/g CRE (<30 mg/g CRE)
== END ==
PROVIDERS: PCP Family Medicine; Visit Provider Family Medicine
DX: E11.9 Type 2 diabetes mellitus without complications (principal)
CPT/HCPCS: 36415; 80048; 80061; 82043; 82570

== ENCOUNTER → 2021-08-19 | Outpatient (CLI) | payer MEDICARE, SELFPAY ==
[2021-08-19 18:02] LABS: Microalbumin:Creatinine Ratio 15.5 mg/g CRE (<30 mg/g CRE)
[2021-08-19 18:05] LABS: Anion Gap 5 (5-15); BUN 12 mg/dL (7-18); Calcium,Total 9.2 mg/dL (8.5-10.1); Chloride 102 mmol/L (98-107); Cholesterol 122 mg/dL (200); Creatinine, Serum 0.75 mg/dL (0.70-1.30); EST Glomerular Filtration Rate 107 mL/min (>60); Est Glom Filt Rate - Afr Amer 129 mL/min (>60); Glucose 125 mg/dL (74-106); High Density Lipoprotein 31 mg/dL; Potassium 4.9 mmol/L (3.5-5.1); Sodium Level 136 mmol/L (136-145); Triglycerides 128 mg/dL; Very Low Density Lipoprotein 26 mg/dL (5-40)
== END | disposition home or self-care (01) ==
LOC: MFPLAB 16:32
PROVIDERS: PCP Family Medicine; Visit Provider Family Medicine
DX: E11.9 Type 2 diabetes mellitus without complications (principal)
CPT/HCPCS: 36415; 80048; 80061; 82043; 82570

== ENCOUNTER → 2022-02-17 | Outpatient (CLI) | payer MEDICARE, SELFPAY ==
[2022-02-17 18:26] LABS: Anion Gap 6 (5-15); BUN 13 mg/dL (7-18); Chloride 103 mmol/L (98-107); Cholesterol 112 mg/dL (200); Creatinine, Serum 0.62 mg/dL (0.70-1.30); EST Glomerular Filtration Rate 133 mL/min (>60); Est Glom Filt Rate - Afr Amer 161 mL/min (>60); Glucose 115 mg/dL (74-106); High Density Lipoprotein 34 mg/dL; Potassium 4.6 mmol/L (3.5-5.1); Sodium Level 138 mmol/L (136-145); Triglycerides 106 mg/dL; Very Low Density Lipoprotein 21 mg/dL (5-40)
== END | disposition home or self-care (01) ==
LOC: MFPLAB 14:43
PROVIDERS: PCP Family Medicine; Visit Provider Family Medicine
DX: I10 Essential (primary) hypertension (principal)
CPT/HCPCS: 36415; 80048; 80061

== ENCOUNTER 2022-07-25 20:43 | Emergency (ER) | payer MEDICARE, SELFPAY ==
[2022-07-25 20:44] VITALS: BP 134/116; PULSE 78; RESP 18; TEMP 35.6; O2SAT 93
[2022-07-25 20:46] VITALS: BMI 44.0
--- NOTE | 2022-07-25 21:04 | EX.ED.GENINJ ---
HPI History of Present Illness Chief Complaint: Fall Informant: patient Onset/Context/Timing Onset: Today Narrative Narrative: Patient presents with left rib injury. He states that he got his feet tangled getting off the mower today and fell onto his left side with his arm caught underneath him. He states he got the breath knocked out of him briefly. He was able to get back up and into the house where his ribs were sore on the left. He states he reached for something to his left and had sudden spasm of pain with difficulty breathing again. Since the spasm has improved he feels that his breathing is also improved. He does have a history of rib fracture. [facility] Medical History (Updated 07/25/22 @ 22:[address] Nargis Krishnan MD) Chronic combined systolic and diastolic CHF (congestive heart failure) Essential (primary) hypertension HLD (hyperlipidemia) Nonischemic cardiomyopathy Type 2 diabetes mellitus Home Medications atorvastatin 20 mg tablet 20 mg PO QDAY 08/04/17 [History Last Taken Unknown] ascorbic acid (vitamin C) 1,000 mg tablet,extended release 1,000 mg PO DAILY 08/24/18 [History Last Taken Unknown] cholecalciferol (vitamin D3) 50 mcg (2,000 unit) capsule 2,000 unit PO BID 08/24/18 [History Last Taken Unknown] empagliflozin 10 mg tablet (Jardiance) 10 mg PO DAILY 08/24/18 [History Last Taken Unknown] metformin 500 mg tablet 500 mg PO BID 08/24/18 [History Last Taken Unknown] aspirin 81 mg chewable tablet 81 mg PO DAILY@0800 11/26/18 [History Last Taken Unknown] carvedilol 25 mg tablet (Coreg) 25 mg PO BID #180 tabs 02/16/19 [Rx Last Taken Unknown] amlodipine 10 mg tablet 10 mg PO DAILY #60 tabs 11/07/20 [Rx Last Taken Unknown] hydrocodone-acetaminophen 5-325mg 5mg-325mg 1 tab PO Q6H PRN PRN Pain 4 days #14 TABLETS 07/25/22 [Rx Last Taken Unknown] Allergy/AdvReac Type Severity Reaction Status Date / Time lisinopril Allergy Angioedema Verified 07/25/22 20:43 Family History Father Hypertension Mother Hypertension Surgical History History of knee replacement History of left heart catheterization (06/09/12) History of tonsillectomy History of vasectomy Social History Smoking Status: Never smoker alcohol intake: never caffeine: Yes Type: coffee Number of servings: 3 what type of physical activity do you participate in: none ROS ROS ED Constitutional Constitutional ED: Denies chills or fever(s) Eyes Eyes: Denies change in vision or discharge from eye(s) ENT ENT ED: Denies discharge from eye(s), rhinorrhea or sore throat Cardiovascular Cardiovascular: Reports chest pain Respiratory/Chest Respiratory/Chest: Reports dyspnea; Denies cough Gastrointestinal Gastrointestinal: Denies abdominal pain, nausea or vomiting Genitourinary Genitourinary ED: Denies dysuria Musculoskeletal Musculoskeletal: Denies back pain or extremity pain Integumentary Denies Abrasions or rash Neurologic Neurologic: Denies headache(s) or weakness Allergic/Immunologic Allergic/Immunologic ED: Denies lip swelling or urticaria EXAM Physical Exam Const Vital Signs: 07/25/22 20:44 07/25/22 21:03 Temperature 96.1 F L Temperature Source Temporal Pulse Rate 78 Respiratory Rate 18 Respiratory Effort Non-Labored Respiratory Depth Normal Respiratory Pattern Normal Blood Pressure 134/116 H Blood Pressure Mean 122 Pulse Ox 93 Oxygen Delivery Method Room Air Positive well nourished, well developed and obese General Appearance ED: well developed Nutritional Appearance: obese HEENT atraumatic Eyes EOMs intact bilaterally Neck full ROM Chest Wall Chest Narrative: Left lateral chest wall tenderness palpation. No crepitus. Resp normal respiratory effort and clear to auscultation bilaterally Cardio regular rhythm Rate: regular rate GI GI Narrative: Abdomen is soft and nontender. Extremity normal to inspection and full ROM Neuro oriented x3 and no focal motor deficits Psych mental status grossly normal MDM MDM MDM Narrative Medical decision making narrative: Patient sent for x-rays of the chest and left ribs. Treatment and Re-Evaluation Narrative: X-rays per my interpretation reveal at least 1 left-sided rib fracture, I believe rib #9. This is best seen on oblique view. No evidence of pneumothorax. Radiology interpretation is reviewed. They have read the studies as unremarkable with no evidence of fracture. Test results are discussed with the patient. I advised them that I do see at least 1 rib fracture. The most important finding being that there is no evidence of pneumothorax. Patient will be given a dose of [place] here with prescription for the same. Return instructions are given. Discharge Plan Triage Chief Complaint: Fall ED Provider: Nargis Krishnan Dx/Rx/DC Orders Clinical Impression: Fractured rib Instructions: ED Rib Fracture Prescriptions: New hydrocodone-acetaminophen 5-325 mg tablet 1 tab PO Q6H PRN PRN (Reason: Pain) 4 Days Qty: 14 0RF No Action atorvastatin 20 mg tablet 20 mg PO QDAY Jardiance 10 mg tablet 10 mg PO DAILY cholecalciferol (vitamin D3) 2,000 unit capsule 2,000 unit PO BID ascorbic acid (vitamin C) 1,000 mg tablet extended release 1,000 mg PO DAILY metformin 500 mg tablet 500 mg PO BID aspirin 81 MG tablet,chewable 81 mg PO DAILY@0800 carvedilol [Coreg] 25 mg tablet 25 mg PO BID Qty: 180 3RF amlodipine 10 mg tablet 10 mg PO DAILY Qty: 60 5RF Primary Care Provider: Viktor Interiano Referrals: Viktor Interiano MD [Primary Care Provider] - 3-5 Days Disposition Disposition: Home, Self Care
--- NOTE | 2022-07-25 21:15 | RAD_ITS ---
STUDY: X-RAY - UNILATERAL RIBS ( LEFT ) WITH CHEST REASON FOR EXAM: Male, 81 years old. injury TECHNIQUE - RIBS: 4 view(s) of the ribs. TECHNIQUE - CHEST: Single AP portable view of the chest. COMPARISON: 11/26/2018. FINDINGS - RIBS: Normal visualized ribs without a demonstrated fracture. FINDINGS - CHEST: The lungs are clear and expanded. There is no demonstrated pleural abnormality. Normal size heart. Normal mediastinum and maury. Normal visualized pulmonary arteries. There is atherosclerotic calcification of the aortic arch with tortuosity. Normal visualized thoracic spine. Normal visualized ribs, clavicles, and shoulders. There is no demonstrated abnormality of the visualized soft tissue structures of the upper abdomen. RAD/Ribs Uni Min 3V w/PA Chest IMPRESSION: RIBS: Normal x-ray examination of the ribs. CHEST: No definite acute or significant abnormality seen. Electronically Signed: Roger Jasmine MD at 21:37 EDT ,
[2022-07-25 22:55] VITALS: BP 134/74; PULSE 72; RESP 15; O2SAT 91
[2022-07-25] MEDS: HYDROcodone Bitartrate/Apap 5/325 Tablet PO (22:55)
== END 2022-07-25 23:17 | disposition home or self-care (01) ==
PROVIDERS: Emergency Provider Emergency Medicine; PCP Family Medicine; Visit Provider Emergency Medicine
DX: S22.32XA Fracture of one rib, left side, initial encounter for closed fracture (principal); I11.0 Hypertensive heart disease with heart failure; I50.42 Chronic combined systolic (congestive) and diastolic (congestive) heart failure; E11.9 Type 2 diabetes mellitus without complications; E78.5 Hyperlipidemia, unspecified; W17.89XA Other fall from one level to another, initial encounter; Z79.84 Long term (current) use of oral hypoglycemic drugs; Z79.899 Other long term (current) drug therapy; Z79.82 Long term (current) use of aspirin; Z96.659 Presence of unspecified artificial knee joint; Z98.52 Vasectomy status
CPT/HCPCS: 71101; 99283

== ENCOUNTER → 2022-08-18 | Outpatient (CLI) | payer MEDICARE, SELFPAY ==
[2022-08-18 15:56] LABS: Anion Gap 8 (5-15); BUN 14 mg/dL (7-18); BUN/Creat Ratio 24.9 RATIO (10-20); Calcium,Total 8.8 mg/dL (8.5-10.1); Chloride 104 mmol/L (98-107); Cholesterol 139 mg/dL (200); Creatinine, Serum 0.56 mg/dL (0.70-1.30); EST Glomerular Filtration Rate 148 mL/min (>60); Est Glom Filt Rate - Afr Amer 180 mL/min (>60); Glucose 120 mg/dL (74-106); High Density Lipoprotein 36 mg/dL; Potassium 4.9 mmol/L (3.5-5.1); Sodium Level 141 mmol/L (136-145); Triglycerides 110 mg/dL; Very Low Density Lipoprotein 22 mg/dL (5-40)
== END | disposition home or self-care (01) ==
LOC: MFPLAB 14:00
PROVIDERS: PCP Family Medicine; Visit Provider Family Medicine
DX: E11.9 Type 2 diabetes mellitus without complications (principal)
CPT/HCPCS: 36415; 80048; 80061

== ENCOUNTER → 2023-08-10 | Outpatient (CLI) | payer MEDICARE, SELFPAY ==
[2023-08-10 18:14] LABS: Anion Gap 6 (5-15); BUN 10 mg/dL (7-18); BUN/Creat Ratio 13.3 RATIO (10-20); Calcium,Total 9.2 mg/dL (8.5-10.1); Chloride 102 mmol/L (98-107); Cholesterol 108 mg/dL (200); Creatinine, Serum 0.75 mg/dL (0.70-1.30); EST Glomerular Filtration Rate 106 mL/min (>60); Est Glom Filt Rate - Afr Amer 128 mL/min (>60); Glucose 131 mg/dL (74-106); High Density Lipoprotein 32 mg/dL; Potassium 4.7 mmol/L (3.5-5.1); Sodium Level 135 mmol/L (136-145); Triglycerides 118 mg/dL; Very Low Density Lipoprotein 24 mg/dL (5-40)
[2023-08-14 18:15] LABS: Microalbumin,Random Urine 18.2 mg/L (NO RANGE EST.); Microalbumin:Creatinine Ratio 23.5 mg/g CRE (<30 mg/g CRE)
== END | disposition home or self-care (01) ==
LOC: MFPLAB 15:15
PROVIDERS: PCP Family Medicine; Visit Provider Family Medicine
DX: I10 Essential (primary) hypertension (principal)
CPT/HCPCS: 36415; 80048; 80061; 82043; 82570

== ENCOUNTER → 2024-02-08 | Outpatient (CLI) | payer MEDICARE, SELFPAY ==
[2024-02-08 19:04] LABS: ALB/GLOB Ratio 0.8 RATIO (0.9-2.4); AST(SGOT) 39 U/L (15-37); Alanine Aminotransfer ALT/SGPT 36 U/L (16-61); Albumin, Serum 3.8 g/dL (3.2-5.0); Alkaline Phosphatase 70 U/L (45-117); Anion Gap 5 (5-15); BUN 14 mg/dL (7-18); BUN/Creat Ratio 19.6 RATIO (10-20); Chloride 102 mmol/L (98-107); Cholesterol 104 mg/dL (200); Creatinine, Serum 0.71 mg/dL (0.70-1.30); EST Glomerular Filtration Rate 112 mL/min (>60); Est Glom Filt Rate - Afr Amer 136 mL/min (>60); Globulin 4.7 g/dL (2.2-4.2); Glucose 134 mg/dL (74-106); High Density Lipoprotein 34 mg/dL; Potassium 4.4 mmol/L (3.5-5.1); Protein, Total 8.5 g/dL (6.4-8.2); Sodium Level 136 mmol/L (136-145); Triglycerides 117 mg/dL; Very Low Density Lipoprotein 23 mg/dL (5-40)
== END | disposition home or self-care (01) ==
PROVIDERS: PCP Family Medicine; Referring Provider Family Medicine; Visit Provider Family Medicine
DX: E11.9 Type 2 diabetes mellitus without complications (principal)
CPT/HCPCS: 36415; 80053; 80061